=== PATIENT | female | born 1970 | race Caucasian/White ===

== ENCOUNTER → 2019-10-24 | Outpatient (CLI) | payer BC ==
--- NOTE | 2019-10-24 15:05 | CT ---
EXAMINATION TYPE: CT abdomen pelvis wo con DATE OF EXAM: 10/24/2019 COMPARISON: None HISTORY: Generalized abdominal pain, diarrhea CT DLP: 226.1 mGycm Automated exposure control for dose reduction was used. TECHNIQUE: Helical acquisition of images from the lung bases through the pelvis. FINDINGS: Lack of intravenous contrast could compromise sensitivity. LUNG BASES: No significant abnormality is appreciated. Small cystic focus possible small pneumatocele right posterior lung base measures 15 mm, smaller similar appearing lesion in the left lung base AORTA: No significant abnormality is appreciated. LIVER/GB: No significant abnormality is appreciated. PANCREAS: No significant abnormality is seen. SPLEEN: No significant abnormality is seen. ADRENALS: No significant abnormality is seen. KIDNEYS: No significant abnormality is seen. REPRODUCTIVE ORGANS: Uterus is absent. Ovaries are not seen.. URINARY BLADDER: No significant abnormality is seen. BOWEL: High dense material is present at the level of the cecum possibly due to prior appendectomy, correlate with appropriate history. Fluid-filled loops of small and large bowel noted. FREE AIR: No Free Air is visible. ASCITES: None visible. PELVIC ADENOPATHY: None visualized. RETROPERITONEAL ADENOPATHY: No Retroperitoneal Adenopathy visible. OSSEOUS STRUCTURES: Mild degenerative disc changes in the visualized spine.. IMPRESSION: NONCONTRAST EXAM. NO SIGNIFICANT ABNORMALITY TO ACCOUNT FOR PATIENT'S SYMPTOMS. Findings consistent w ith patient's history of diarrhea.
== END | disposition home or self-care (01) ==
LOC: RADCTMAIN 14:04
PROVIDERS: ATTEND Nurse Practitioner Adult Health
DX: R10.9 Unspecified abdominal pain (principal); R19.7 Diarrhea, unspecified
CPT/HCPCS: 74176

== ENCOUNTER 2019-10-26 14:24 | Inpatient (IN) | payer BC ==
--- NOTE | 2019-10-26 14:52 | ED ---
General Adult HPI - General Chief complaint: Recheck/Abnormal Lab/Rx Stated complaint: Abd pain Time Seen by Provider: 10/26/19 14:40 Source: patient, RN notes reviewed Mode of arrival: ambulatory Limitations: no limitations - History of Present Illness Initial comments: 49-year-old female with a past medical history of hysterectomy, appendectomy presents to the emergency department for a chief complaint of abnormal labs. Patient states that about 3-4 days ago she had some diarrhea and abdominal pain. States she went to her primary care doctor and had an elevated pancreas enzyme level of 400. States it was repeated again the next day and was 1000. Patient states that it was repeated again yesterday and was now at 3000. Patient states that she got a call from her doctor to come to the emergency department. Patient states that she is actually doing much better. She states she has hardly any pain but does admit to some minimal discomfort in the epigastric area. Denies any nausea vomiting diarrhea. States she has been drinking a clear liquid diet which was instructed by her doctor.Patient has no other complaints at this time including shortness of breath, chest pain, headache, or visual changes. - Related Data Home Medications Medication Instructions Recorded Confirmed Varenicline Tartrate [Chantix 0.5 mg PO DIRECTED 10/26/19 10/26/19 Starter Pack] Allergies Allergy/AdvReac Type Severity Reaction Status Date / Time No Known Allergies Allergy Verified 10/26/19 18:17 Review of Systems ROS Statement: Those systems with pertinent positive or pertinent negative responses have been documented in the HPI. ROS Other: All systems not noted in ROS Statement are negative. Past Medical History Past Medical History: No Reported History History of Any Multi-Drug Resistant Organisms: None Reported Past Surgical History: Appendectomy, Hysterectomy Past Psychological History: No Psychological Hx Reported Smoking Status: Current some day smoker Past Alcohol Use History: None Reported Past Drug Use History: None Reported General Exam Limitations: no limitations General appearance: alert, in no apparent distress Head exam: Present: atraumatic, normocephalic, normal inspection Eye exam: Present: normal appearance, PERRL, EOMI. Absent: scleral icterus, conjunctival injection, periorbital swelling ENT exam: Present: normal exam, mucous membranes moist Neck exam: Present: normal inspection, full ROM. Absent: tenderness, meni ngismus, lymphadenopathy Respiratory exam: Present: normal lung sounds bilaterally. Absent: respiratory distress, wheezes, rales, rhonchi, stridor Cardiovascular Exam: Present: regular rate, normal rhythm, normal heart sounds. Absent: systolic murmur, diastolic murmur, rubs, gallop, clicks GI/Abdominal exam: Present: soft, tenderness (Minimal epigastric tenderness. No right upper quadrant tenderness. Negative Wills sign. No lower abdominal tenderness.), normal bowel sounds. Absent: distended, guarding, rebound, rigid Neurological exam: Present: alert Course Vital Signs 10/26/19 10/26/19 10/26/19 14:32 15:41 15:50 Temperature 97.9 F 97.8 F Pulse Rate 101 H 80 Respiratory 18 20 Rate Blood Pressure 120/75 112/74 O2 Sat by Pulse 98 100 Oximetry 10/26/19 10/26/19 16:38 18:05 Temperature 97.8 F 97.7 F Pulse Rate 88 78 Respiratory 18 20 Rate Blood Pressure 117/63 109/69 O2 Sat by Pulse 100 100 Oximetry - Reevaluation(s) Reevaluation #1: 10/26/19 14:52 Patient had a noncontrast CT of the abdomen and pelvis 2 days ago on 10/24/2019 that showed no significant abnormality. This was reviewed. Medical Decision Making - Medical Decision Making Physical exam reveals mild epigastric tenderness. No right upper quadrant tenderness. CBC unremarkable. CMP unremarkable. Lipase elevated at 1787. I do not have any previous to compare to however patient reports that today was 3000. Abdominal ultrasound was obtained which shows mild diffuse dilation of the main pancreatic duct at 3.1 mm which could be chronic. Correlate with amylase and lipase level. 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 Consider MRI and MRCP. Given dilation of the pancreatic duct and elevated lipase patient will be admitted for further management. GI is consulted. - Lab Data Result diagrams: 10/26/19 14:59 10/26/19 14:59 Lab Results 10/26/19 10/26/19 10/26/19 Range/Units 14:59 14:59 14:59 WBC 7.1 (3.8-10.6) k/uL RBC 4.99 (3.80-5.40) m/uL Hgb 15.8 (11.4-16.0) gm/dL Hct 47.0 H (34.0-46.0) % MCV 94.2 (80.0-100.0) fL MCH 31.7 (25.0-35.0) pg MCHC 33.7 (31.0-37.0) g/dL RDW 12.0 (11.5-15.5) % Plt Count 272 (150-450) k/uL Neutrophils % (Manual) 63 % Lymphocytes % (Manual) 27 % Monocytes % (Manual) 6 % Eosinophils % (Manual) 4 % Neutrophils # (Manual) 4.47 (1.3-7.7) k/uL Lymphocytes # (Manual) 1.92 (1.0-4.8) k/uL Monocytes # (Manual) 0.43 (0-1.0) k/uL Eosinophils # (Manual) 0.28 (0-0.7) k/uL Nucleated RBCs 0 (0-0) /100 WBC Manual Slide Review Performed RBC Morphology Normal Sodium 138 (137-145) mmol/L Potassium 4.0 (3.5-5.1) mmol/L Chloride 109 H (98-107) mmol/L Carbon Dioxide 19 L (22-30) mmol/L Anion Gap 10 mmol/L BUN 11 (7-17) mg/dL Creatinine 0.64 (0.52-1.04) mg/dL Est GFR (CKD-EPI)AfAm >90 (>60 ml/min/1.73 sqM) Est GFR (CKD-EPI)NonAf >90 (>60 ml/min/1.73 sqM) Glucose 76 (74-99) mg/dL Calcium 9.9 (8.4-10.2) mg/dL Total Bilirubin 0.7 (0.2-1.3) mg/dL AST 27 (14-36) U/L ALT 15 (4-34) U/L Alkaline Phosphatase 100 (38-126) U/L Total Protein 7.7 (6.3-8.2) g/dL Albumin 4.7 (3.5-5.0) g/dL Amylase (30-110) U/L Lipase 1787 H (23-300) U/L Urine Color Colorless Urine Appearance Clear (Clear) Urine pH 5.5 (5.0-8.0) Ur Specific [place] 1.002 (1.001-1.035) Urine Protein Negative (Negative) Urine Glucose (UA) Negative (Negative) Urine Ketones Trace H (Negative) Urine Blood Negative (Negative) Urine Nitrite Negative (Negative) Urine Bilirubin Negative (Negative) Urine Urobilinogen <2.0 (<2.0) mg/dL Ur Leukocyte Esterase Small H (Negative) Urine RBC 1 (0-5) /hpf Urine WBC 3 (0-5) /hpf Ur Squamous Epith Cells <1 (0-4) /hpf Urine Bacteria Rare H (None) /hpf Urine Mucus Rare H (None) /hpf Disposition Clinical Impression: Elevated lipase, Pancreatic duct dilated Disposition: ADMITTED IP TO THIS HOSP Condition: Fair Is patient prescribed a controlled substance at d/c from ED?: No Referrals: Lanre Lo MD [Primary Care Provider] - 1-2 days Time of Disposition: 17:36
[2019-10-26] MEDS ORDERED: SODIUM CHLORIDE 0.9% 1,000 ML IV STA (14:59)
[2019-10-26 16:02] LABS: ALT 15 U/L (4-34); AST 27 U/L (14-36); African American GFR (CKD) >90 (>60 ml/min/1.73 sqM); Albumin 4.7 g/dL (3.5-5.0); Alkaline Phosphatase 100 U/L (38-126); Anion Gap 10 mmol/L; Blood Urea Nitrogen 11 mg/dL (7-17); Calcium 9.9 mg/dL (8.4-10.2); Carbon Dioxide 19 mmol/L (22-30); Chloride 109 mmol/L (98-107); Glucose 76 mg/dL (74-99); Non-African American GFR(CKD) >90 (>60 ml/min/1.73 sqM); Sodium 138 mmol/L (137-145); Total Bilirubin 0.7 mg/dL (0.2-1.3); Total Protein 7.7 g/dL (6.3-8.2)
[2019-10-26 16:10] LABS: Appearance,Urine Clear (Clear); Bacteria,Urine Rare /hpf; Bilirubin,Urine Negative (Negative); Blood,Urine Negative (Negative); Color,Urine Colorless; Glucose,Urine (UA) Negative (Negative); Ketones,Urine Trace (Negative); Leukocyte Esterase,Urine Small (Negative); Mucus,Urine Rare /hpf; Nitrite,Urine Negative (Negative); PH, Urine 5.5 (5.0-8.0); Protein,Urine Negative (Negative); RBC,Urine 1 /hpf (0-5); Specific Gravity,Urine 1.002 (1.001-1.035); Squamous Epithelial Cell,Urine <1 /hpf (0-4); Urobilinogen,Urine <2.0 mg/dL (<2.0); WBC,Urine 3 /hpf (0-5)
--- NOTE | 2019-10-26 16:14 | US ---
EXAMINATION TYPE: US abdomen limited DATE OF EXAM: 10/26/2019 COMPARISON: CT 10/24/2019 CLINICAL HISTORY: 49-year-old female RUQ/pancreas. Elevated enzymes per patient TECHNIQUE: Multiple sonographic images of the right upper quadrant are obtained. FINDINGS: EXAM MEASUREMENTS: Liver Length: 10.8 cm Gallbladder Wall: 0.2 cm CBD: 4.8 mm, within normal limits. Right Kidney: 10.5 x 4.5 x 4.5 cm Data Control Clerk notes: Lower pole of right kidney obscured by bowel gas. Pancreas: prominent duct at 3.1 mm. Liver: wnl Gallbladder: No stones seen Evidence for sonographic Wills's sign: No CBD: wnl Right Kidney: No hydronephrosis. IMPRESSION: 1. Mild diffuse dilatation of the main pancreatic duct at 3.1 mm maybe chronic in this patient from remote pancreatic disease. Correlate with amylase and lipase levels. 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 Consider follow-up pancreas MRI and MRCP. 2. No cholelithiasis or biliary ductal dilatation.
[2019-10-26 16:43] LABS: HGB 15.8 gm/dL (11.4-16.0); MCH 31.7 pg (25.0-35.0); MCHC 33.7 g/dL (31.0-37.0); MCV 94.2 fL (80.0-100.0); Mean Platelet Volume 8.1; Platelet Count 272 k/uL (150-450); RBC 4.99 m/uL (3.80-5.40); WBC 7.1 k/uL (3.8-10.6)
[2019-10-26 17:23] LABS: Eosinophils # (M) 0.28 k/uL (0-0.7); Lymphocytes # (M) 1.92 k/uL (1.0-4.8); Monocytes # (M) 0.43 k/uL (0-1.0); Neutrophils # (M) 4.47 k/uL (1.3-7.7); Neutrophils % (M) 63 %; Nucleated Red Blood Cells 0 /100 WBC (0-0); Total Cells Counted 100
[2019-10-26] MEDS ORDERED: ONDANSETRON 4 MG/2 ML VIAL IVP PRN (17:36)
[2019-10-26] MEDS ORDERED: HYDROmorphone 0.5 MG/0.5 ML SYRINGE IVP PRN (17:36)
[2019-10-26] MEDS ORDERED: KETOROLAC 30 MG/ML 1 ML VIAL IVP PRN (17:36)
[2019-10-26] MEDS ORDERED: NALOXONE 0.4 MG/ML 1 ML VIAL IV PRN (17:36)
[2019-10-26] MEDS: SODIUM CHLORIDE 0.9% 1,000 ML IV SCH (18:00)
[2019-10-27] MEDS: SODIUM CHLORIDE 0.9% 1,000 ML IV SCH ×3 (02:15→20:27)
[2019-10-27 09:50] LABS: HCT 38.8 % (34.0-46.0); MCHC 33.6 g/dL (31.0-37.0); MCV 95.3 fL (80.0-100.0); Mean Platelet Volume 9.1; Platelet Count 243 k/uL (150-450); RBC 4.07 m/uL (3.80-5.40); RDW 12.1 % (11.5-15.5); WBC 4.9 k/uL (3.8-10.6)
[2019-10-27 10:00] LABS: ALT 11 U/L (4-34); AST 21 U/L (14-36); African American GFR (CKD) >90 (>60 ml/min/1.73 sqM); Albumin 3.3 g/dL (3.5-5.0); Alkaline Phosphatase 65 U/L (38-126); Amylase 212 U/L (30-110); Anion Gap 4 mmol/L; Blood Urea Nitrogen 6 mg/dL (7-17); Calcium 8.4 mg/dL (8.4-10.2); Carbon Dioxide 20 mmol/L (22-30); Chloride 116 mmol/L (98-107); Glucose 83 mg/dL (74-99); Non-African American GFR(CKD) >90 (>60 ml/min/1.73 sqM); Potassium 4.1 mmol/L (3.5-5.1); Sodium 140 mmol/L (137-145); Total Bilirubin 0.5 mg/dL (0.2-1.3); Total Protein 5.7 g/dL (6.3-8.2)
--- NOTE | 2019-10-27 10:42 | CONS ---
CONSULTATION DATE OF SERVICE: October 27, 2019. REQUESTING PHYSICIAN: Dr. Lanre Lo. REASON FOR CONSULTATION: Elevated lipase and diarrhea. HISTORY OF PRESENT ILLNESS: The patient is a 49-year-old pleasant white female who has been having diarrhea for the last 2 weeks duration. She was having bowel movements anywhere from 5 to 7 a day which are loose to watery in consistency but no blood or mucus in the stool. The diarrhea continued to progressively get worse. She went to see Dr. Lo on an outpatient basis and had initially some stool studies done. According to the patient, she does not know the results. She did have routine labs on an outpatient basis and apparently was noted to have a lipase of 3000. She had a CT of the abdomen and pelvis done and was advised to go to the emergency room for possible acute pancreatitis. The patient in the meantime, denies any abdominal pain. Reports no nausea, vomiting. Never had these symptoms in the past. She came to the ER and had repeat labs done. Lipase was reported as 1746, serum transaminase within normal limits. This morning she still has no abdominal pain. She continues to have diarrhea with bowel movements though she had about 2 loose watery bowel movements this morning. No bleeding. No prior history of colonoscopy. No history of alcohol use. No fever, chills, night sweats. She denies any recent antibiotic use. No recent travel history. PAST MEDICAL HISTORY: Unremarkable. PAST SURGICAL HISTORY: Appendectomy, hysterectomy. MEDICATIONS: At home include Chantix. ALLERGIES: None. SOCIAL HISTORY: Chronic smoker. No alcohol use. FAMILY HISTORY: Unremarkable. REVIEW OF SYMPTOMS: Cardiopulmonary: No chest pain, shortness of breath. : No dysuria or hematuria. MUSCULOSKELETAL unremarkable. SKIN unremarkable. ENDOCRINE unremarkable. PSYCHIATRIC unremarkable. NEUROLOGY unremarkable. ENT/vision unremarkable. CONSTITUTIONAL: No recent weight loss. No fever, chills, night sweats. PHYSICAL EXAMINATION: She appears comfortable. No apparent distress. VITAL SIGNS: Stable. Blood pressure is 105/69, pulse 78, temperature 98.2. HEENT examination: Unremarkable. Conjunctivae pink. Sclerae anicteric. Oral cavity no lesions. NECK: No JVD or lymph node enlargement. CHEST: Clear to auscultation. HEART: Regular rate and rhythm. ABDOMEN: Soft. Bowel sounds are positive. No organomegaly. EXTREMITIES: No pedal edema. SKIN no rashes. NEUROLOGIC: Alert and oriented x3. No focal deficits. LABS: WBC 7.1, hemoglobin 15.8, platelets normal. Basic metabolic panel is within normal limits. ALT, AST, T-bilirubin and alkaline phosphatase are normal. Lipase is 1787. CT of the abdomen and pelvis done 2 days ago showed normal-appearing pancreas. IMPRESSION: 1. Elevated lipase at 3000 which is down to 1787 yesterday, but clinically patient does not have any evidence of abdominal pain, nausea, vomiting, possibly representing mild pancreatitis. Recent CT scan showed normal-appearing pancreas and normal-appearing gallbladder. Ultrasound of the gallbladder was done yesterday that showed no evidence of gallstones or acute cholecystitis. She never had pancreatitis in the past. 2. Diarrhea for 2 weeks duration, possibly infectious etiology. RECOMMENDATIONS: 1. Stool studies. 2. Start on full liquid diet and advance as tolerated. 3. Repeat labs today. 4. If her labs are improving, she can be discharged home today or tomorrow with outpatient followup and outpatient colonoscopy. The plan was discussed with the patient. She is agreeable to it. Thank you for this consultation. MMODL / IJN: [id number] /
[2019-10-27 11:32] LABS: Band Neutrophils % 1 %; Eosinophils # (M) 0.05 k/uL (0-0.7); Lymphocytes # (M) 0.93 k/uL (1.0-4.8); Monocytes # (M) 0.29 k/uL (0-1.0); Neutrophils % (M) 73 %; Nucleated Red Blood Cells 0 /100 WBC (0-0); Total Cells Counted 100
--- NOTE | 2019-10-27 22:05 | P.HPIM ---
History of Present Illness H&P Date: 10/27/19 Chief Complaint: diarrhea History of presenting complaint: This is a very pleasant [address] Lanre Lo. Rather unremarkable past medical history fairly good health. About 2 weeks ago patient started having diarrhea. About 6-7 times a day. No blood. Predominantly watery. About 5 days ago she turned up significant abdominal cramping. Does not nausea vomiting fever chills. She went on to see her family doctor and they did draw labs and patient's lipase came back at 463. The following day on Monday she went back in again lipase came back at 1000. Following day again she went in lipase had, up to 3000.. Patient had barely been eating and does drink some liquids. She was sent to the ER. No fever no chills. Patient does drink 2 glasses of wine at night. Earlier today, did tolerate some liquids. No abdominal pain. at the bedside. Review of systems: GEN.: Tired EYES: None HEENT: None NECK: None RESPIRATORY: None CARDIOVASCULAR: None GASTROINTESTINAL: As above GENITOURINARY: None MUSCULOSKELETAL: None LYMPHATICS: None HEMATOLOGICAL: None PSYCHIATRY: None NEUROLOGICAL: None. Past medical history: Unremarkable Social history: Smokes a pack a day over 3 days. 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 . Drinks about 2 glasses of wine a night. Sometimes more on the weekends Family history: Reviewed, noncontributory to presentation Physical examination: VITAL SIGNS: 97.9, 101, 18, 120/75, 98% on room air GENERAL: BMI 20, laying in bed slightly anxious. EYES: Pupils equal. Conjunctiva normal. HEENT: External appearance of nose and ears normal, oral cavity grossly normal. NECK: JVD not raised; masses not palpable. HEART: First and second heart sounds are normal; no edema. LUNGS: Respiratory rate normal; clear to auscultation. ABDOMEN: Soft, nontender, liver spleen not palpable, no masses palpable. PSYCH: Alert and oriented x3; mood and affect normal. NEUROLOGICAL: Cranial nerves grossly intact; no facial asymmetry, power and sensation grossly intact. LYMPHATICS: No lymph nodes palpable in the axilla and neck INVESTIGATIONS, reviewed in the clinical context: White count 7.1 hemoglobin 15.8 potassium 4 creatinine 0.64 Lipase 1787, repeat this morning 1303 amylase 212 Abdominal ultrasound-mild diffuse dilatation of the main pancreatic duct. Obstructive lesion could not be ruled out. No bile stones Assessment: -Acute pancreatitis. The patient been having diarrhea for close to 2 weeks. Did have abdominal pain about 5 days ago. Patient had been barely eating or drinking for last 4 days and her lipase Climbing up. Patient does drink about 2 glasses of wine a night. This may be significant for her. No gallstones reported. Viral etiology still possible. 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 Eaton was consulted. Patient is feeling better today did tolerate some liquids. Like the patient to be standing overnight, at least see how she tolerates solid food and if lipase get worse. Patient very keen and tearful to go home because her son with visiting from college. I did talk to her about the pros and cons of my plan. I would like to be careful. This was further discussed. We'll see how she does. Repeat labs in the morning. Past Medical History Past Medical History: No Reported History History of Any Multi-Drug Resistant Organisms: None Reported Past Surgical History: Appendectomy, Hysterectomy Past Anesthesia/Blood Transfusion Reactions: No Reported Reaction Past Psychological History: No Psychological Hx Reported Smoking Status: Current some day smoker Past Alcohol Use History: None Reported Past Drug Use History: None Reported Medications and Allergies Home Medications Medication Instructions Recorded Confirmed Type Varenicline Tartrate [Chantix 0.5 mg PO DIRECTED 10/26/19 10/26/19 History Starter Pack] Allergies Allergy/AdvReac Type Severity Reaction Status Date / Time No Known Allergies Allergy Verified 10/26/19 18:17 Physical Exam Vitals: Vital Signs Temp Pulse Pulse Resp BP BP Pulse Ox 10/27/19 07:50 98.2 F 78 18 105/69 98 10/27/19 01:56 97.9 F 81 16 102/66 97 10/26/19 23:29 88 18 10/26/19 18:36 98.0 F 80 18 119/80 98 10/26/19 18:05 97.7 F 78 20 109/69 100 10/26/19 16:38 97.8 F 88 18 117/63 100 10/26/19 15:50 112/74 10/26/19 15:41 97.8 F 80 20 100 10/26/19 14:32 97.9 F 101 H 18 120/75 98 Intake and Output 02/01/20 02/02/20 02/02/20 22:59 06:59 14:59 Intake Total 1180 840 100 Balance 1180 840 100 Intake: Intake, IV Titration 460 840 Amount Sodium Chloride 0.9% 1, 460 840 000 ml @ 120 mls/hr IV . Q8H20M [facility] Rx#:[id number] Oral 720 100 Other: Voiding Method Toilet Toilet # Voids 2 2 Weight 51.256 kg Results CBC & Chem 7: 10/27/19 09:40 10/27/19 09:40 Labs: Abnormal Lab Results - Last 24 Hours (Table) 10/26/19 10/26/19 10/26/19 Range/Units 14:59 14:59 14:59 Hct 47.0 H (34.0-46.0) % Lymphocytes # (Manual) (1.0-4.8) k/uL Chloride 109 H (98-107) mmol/L Carbon Dioxide 19 L (22-30) mmol/L BUN (7-17) mg/dL Creatinine (0.52-1.04) mg/dL Total Protein (6.3-8.2) g/dL Albumin (3.5-5.0) g/dL Amylase (30-110) U/L Lipase 1787 H (23-300) U/L Urine Ketones Trace H (Negative) Ur Leukocyte Esterase Small H (Negative) Urine Bacteria Rare H (None) /hpf Urine Mucus Rare H (None) /hpf 10/27/19 10/27/19 Range/Units 09:40 09:40 Hct (34.0-46.0) % Lymphocytes # (Manual) 0.93 L (1.0-4.8) k/uL Chloride 116 H (98-107) mmol/L Carbon Dioxide 20 L (22-30) mmol/L BUN 6 L (7-17) mg/dL Creatinine 0.51 L (0.52-1.04) mg/dL Total Protein 5.7 L (6.3-8.2) g/dL Albumin 3.3 L (3.5-5.0) g/dL Amylase 212 H (30-110) U/L Lipase 1303 H (23-300) U/L Urine Ketones (Negative) Ur Leukocyte Esterase (Negative) Urine Bacteria (None) /hpf Urine Mucus (None) /hpf Thrombosis Risk Factor Assmnt - Choose All That Apply Each Factor Represents 1 point: Age 41-60 years Other Risk Factors: No Other congenital or acquired thrombophilia - If yes, enter type in comment: No Thrombosis Risk Factor Assessment Total Risk Factor Score: 1 Thrombosis Risk Factor Assessment Level: Low Risk
[2019-10-27] MEDS ORDERED: LACTATED RINGERS 1,000 ML IV SCH (22:15)
[2019-10-27] MEDS: SODIUM BICARBONATE TAB 650 MG TAB PO SCH (23:21)
[2019-10-27] MEDS: ENOXAPARIN 40 MG/0.4 ML SYRINGE SQ SCH (23:26)
[2019-10-28 07:55] VITALS: BP 119/75; PULSE 80; RESP 18; TEMP 98.1
[2019-10-28] MEDS: ENOXAPARIN 40 MG/0.4 ML SYRINGE SQ SCH (08:36)
[2019-10-28] MEDS: SODIUM BICARBONATE TAB 650 MG TAB PO SCH (08:39)
[2019-10-28 09:35] LABS: Amylase 134 U/L (30-110); GGT 17 U/L (12-43)
--- NOTE | 2019-10-28 15:15 | CONS ---
CONSULTATION DATE OF SERVICE: 10/28/2019 Patient is a 49-year-old pleasant white female admitted to the hospital with elevated lipase and that was noted on outpatient basis. She was also having diarrhea for the last 2 weeks duration. Since being in the hospital, her diarrhea has significantly improved. Stool studies for C difficile toxin, GI antigen and ova parasites have been negative. The patient is feeling much better today. Lipase is down to 1000. She is on a low-fiber, low-fat diet, tolerating well. She denies any abdominal pain. No nausea, vomiting. PHYSICAL EXAMINATION: Blood pressure 119/75, pulse rate 80, temperature 98. HEENT: Examination unremarkable, conjunctivae are pink. Sclerae nonicteric. Oral cavity no lesions. NECK: No JVD or lymph node enlargement. CHEST: Clear to auscultation. HEART: Regular rate and rhythm. ABDOMEN: Soft, bowel sounds are positive. No organomegaly. EXTREMITIES: No pedal edema. SKIN: No rashes. NEUROLOGIC: Alert and oriented x3. No focal deficits. LABS: WBC 4.9, hemoglobin 13, platelets normal, basic metabolic panel is within normal limits. Lipase is 1098. C difficile toxin is negative. GI antigen negative. Stool occult blood negative. IMPRESSION: 1. Acute diarrhea for the last 2 weeks duration with negative stool studies so far. Diarrhea has significantly improved since being in the hospital. 2. Asymptomatic elevation of lipase, possibly mild acute pancreatitis or possibly elevated because of the acute diarrhea. In any event, CT of the abdomen and pelvis done on outpatient basis was unremarkable with normal-appearing pancreas. The patient is clinically asymptomatic. RECOMMENDATIONS: 1. Advance to low-fat diet. 2. Since the diarrhea has improved, no further studies recommended. 3. I did suggest outpatient colonoscopy in 2-3 weeks. 4. She can be discharged home with outpatient followup in a week. Thank you for this consultation. MMODL / IJN: [id number] /
--- NOTE | 2019-10-28 21:51 | P.DS ---
Providers Date of admission: 10/26/19 18:23 Expected date of discharge: 10/28/19 Attending physician: Tae Collins Consults: 10/26/19 17:36 Consult Physician Routine Consulting Provider: Alondra Ann Consult Reason/Comments: dilated pancreatic duct, elevated lipase Do you want consulting provider notified?: Yes [facility]: Chief Complaint: diarrhea History of presenting complaint: This is a very pleasant [address] Lanre Lo. Rather unremarkable past medical history fairly good health. About 2 weeks ago patient started having diarrhea. About 6-7 times a day. No blood. Predominantly watery. About 5 days ago she turned up significant abdominal cramping. Does not nausea vomiting fever chills. She went on to see her family doctor and they did draw labs and patient's lipase came back at 463. The following day on Monday she went back in again lipase came back at 1000. Following day again she went in lipase had, up to 3000.. Patient had barely been eating and does drink some liquids. She was sent to the ER. No fever no chills. Patient does drink 2 glasses of wine at night. Earlier today, did tolerate some liquids. No abdominal pain. at the bedside. Today-the much better. Tolerated diet overnight. No abdominal pain no nausea vomiting. Labs were reviewed with the patient and . Diet and other details were discussed at length question answered. She will follow up with Dr. Eaton in the office. Okayed by Dr. Eaton to be discharged. Discussion and discharge planning more than 35 minutes Consultation: Dr. Paris Ann from GI Physical examination: VITAL SIGNS: 98.1-80-89-119/75-97% on room air GENERAL: BMI 20, sitting up, comfortable EYES: Pupils equal. Conjunctiva normal. HEENT: External appearance of nose and ears normal, oral cavity grossly normal. NECK: JVD not raised; masses not palpable. HEART: First and second heart sounds are normal; no edema. LUNGS: Respiratory rate normal; clear to auscultation. ABDOMEN: Soft, nontender, liver spleen not palpable, no masses palpable. PSYCH: Alert and oriented x3; mood and affect normal. INVESTIGATIONS, reviewed in the clinical context: Amylase 134, lipase 1098 Previous testing White count 7.1 hemoglobin 15.8 potassium 4 creatinine 0.64 Lipase 1787, repeat this morning 1303 amylase 212 Abdominal ultrasound-mild diffuse dilatation of the main pancreatic duct. Obstructive lesion could not be ruled out. No bile stones Assessment: -Acute pancreatitis. The patient been having diarrhea for close to 2 weeks. Did have abdominal pain about 5 days ago. Patient had been barely eating or drinking for last 4 days and her lipase Climbing up. Patient does drink about 2 glasses of wine a night. This may be significant for her. No gallstones reported. Viral etiology still possible. -Metabolic acidosis from diarrhea -Hypoalbuminemia-is acute phase reactant Disposition: Home Patient Condition at Discharge: Fair Plan - Discharge Summary Discharge Rx Participant: No New Discharge Prescriptions: Continue Varenicline Tartrate [Chantix Starter Pack] 0.5 mg PO DIRECTED Discharge Medication List Varenicline Tartrate [Chantix Starter Pack] 0.5 mg PO DIRECTED 10/26/19 [History] Follow up Appointment(s)/Referral(s): Amira Yin PAC [REFERRING] - 11/19/19 9:30 am Lanre Lo MD [Primary Care Provider] - 10/31/19 10:45 am Patient Instructions/Handouts: Low Fat Diet (DC) Activity/Diet/Wound Care/Special Instructions: Low-fat diet
== END 2019-10-28 13:35 | disposition home or self-care (01) | DRG 439 ==
LOC: EC 14:24 → 4SSUR 18:23
PROVIDERS: ADMIT Hospitalist; ATTEND Hospitalist
DX: K85.90 Acute pancreatitis without necrosis or infection, unspecified (principal); E87.2 Acidosis; F17.210 Nicotine dependence, cigarettes, uncomplicated; E88.09 Other disorders of plasma-protein metabolism, not elsewhere classified; R19.7 Diarrhea, unspecified; Z90.710 Acquired absence of both cervix and uterus; Z90.49 Acquired absence of other specified parts of digestive tract
CPT/HCPCS: 36415; 74176; 76705; 80053; 81001; 82150; 82272; 82977; 83690; 83993; 85025; 87045; 87046; 87324; 87329; 96360; 99285

== ENCOUNTER → 2019-11-22 | Outpatient (CLI) | payer BC ==
--- NOTE | 2019-11-22 12:47 | MR ---
EXAMINATION TYPE: MR MRCP DATE OF EXAM: 11/22/2019 COMPARISON: CT dated 10/24/2019 and the abdomen and limited ultrasound dating 10/26/2019. HISTORY: Pancreatic duct abnormality TECHNIQUE: Multiplanar, multisequence images of the abdomen were performed using [id number] imaging without intravenous contrast per the MRCP protocol. FINDINGS: The common bile duct measures 4.7 mm, within normal limits. The common hepatic duct measures 4.4 mm, also within normal limits. No intrahepatic biliary ductal dilatation. Cystic duct is visualized and u nremarkable. The main pancreatic duct near the common bile duct at the pancreatic head measures 2.5 c m, within normal limits. The main pancreatic duct at the pancreatic body measures 2.4 mm, also within normal limits. The main pancreatic duct towards the pancreatic tail measures 1.5 mm, normal. The liver is elongated extending into the left upper quadrant. There is mild signal dropout of the he patic parenchyma and out of phase imaging compatible with mild degree hepatic steatosis. No intrahepa tic biliary ductal dilatation. The adrenal glands are slightly thickened bilaterally suggesting adren al gland hyperplasia. The pancreatic parenchyma is homogeneous in signal. Gallbladder demonstrates mi nimal biliary sludge. The spleen is nonenlarged measuring 10.0 cm in craniocaudal dimension. The sign al of the kidneys are symmetric and unremarkable. No dilated large or small bowel is seen. Greater th an 1 cm short axis lymph nodes seen in the abdomen. IMPRESSION: 1. The prominent size of the main pancreatic duct on ultrasound appears artifactual or related to obl iquity as the pancreatic duct throughout is within normal limits of size. No side branch dilation is seen. 2. Small amount of biliary sludge within the gallbladder. 3. Mild degree hepatic steatosis. 4. Findings suggesting adrenal gland hyperplasia bilaterally.
== END | disposition home or self-care (01) ==
LOC: RADMRIMAIN 10:40
PROVIDERS: ATTEND Internal Medicine Gastroenterology
DX: K76.0 Fatty (change of) liver, not elsewhere classified (principal); K82.8 Other specified diseases of gallbladder; Q45.3 Other congenital malformations of pancreas and pancreatic duct
CPT/HCPCS: 74181

== ENCOUNTER → 2022-12-05 | Outpatient (CLI) | payer BC ==
--- NOTE | 2022-12-07 09:07 | MM ---
Reason for Exam: Screening (asymptomatic). Last mammogram was performed 7 year(s) and 5 month(s) ago. Patient History: Menarche at age 16. First Full-Term at age 22. Left ovary removed at age 41. Right ovary removed at age 41. Hysterectomy at age 41. Postmenopausal. Maternal aunt had breast cancer under age 50. Risk Values: Marni 5 year model risk: 0.9%. NCI Lifetime model risk: 7.0%. Prior Study Comparison: 12/30/2013 Bilateral Screening Mammogram, [facility]. 06/26/2015 Bilateral Screening Mammogram, [facility]. Tissue Density: There are scattered fibroglandular densities. Analyzed By CAD. Overall Assessment: Incomplete: need additional imaging evaluation, BI-RAD 0 Management: Special View Mammogram of the left breast. Electronically signed and approved by: Jigar Escamilla M.D.
== END | disposition home or self-care (01) ==
LOC: RADMAMWWP 10:52
PROVIDERS: ATTEND Family Medicine
DX: Z12.31 Encounter for screening mammogram for malignant neoplasm of breast (principal); Z78.0 Asymptomatic menopausal state; Z80.3 Family history of malignant neoplasm of breast
CPT/HCPCS: 77067

== ENCOUNTER → 2022-12-08 | Outpatient (CLI) | payer BC ==
--- NOTE | 2022-12-08 14:06 | MM ---
Reason for Exam: Additional evaluation requested from prior study. Last screening mammogram was performed less than 1 month ago. Patient History: Menarche at age 16. First Full-Term at age 22. Left ovary removed at age 41. Right ovary removed at age 41. Hysterectomy at age 41. Postmenopausal. Maternal aunt had breast cancer under age 50. Risk Values: Marni 5 year model risk: 0.9%. NCI Lifetime model risk: 7.0%. Prior Study Comparison: 12/30/2013 Bilateral Screening Mammogram, [facility]. 06/26/2015 Bilateral Screening Mammogram, [facility]. 12/05/2022 Bilateral MG screening mammo w CAD, [facility]. Tissue Density: Left: There are scattered fibroglandular densities. Findings: Analyzed By CAD. There is oval 7 mm obscured mass in the central middle depth approximately 6 to 7 cm distance from nipple on additional views acquired. Overall Assessment: Incomplete: need additional imaging evaluation, BI-RAD 0 Management: Diagnostic Breast Ultrasound of the left breast. Targeted ultrasound left breast. Electronically signed and approved by: Jigar Escamilla M.D.
--- NOTE | 2022-12-08 14:59 | USB ---
Patient History: Menarche at age 16. First Full-Term at age 22. Left ovary removed at age 41. Right ovary removed at age 41. Hysterectomy at age 41. Postmenopausal. Maternal aunt had breast cancer under age 50. Risk Values: Marni 5 year model risk: 0.9%. NCI Lifetime model risk: 7.0%. Technique: Method: Targeted. Prior Study Comparison: 12/30/2013 Bilateral Screening Mammogram, [facility]. 06/26/2015 Bilateral Screening Mammogram, [facility]. 12/05/2022 Bilateral MG screening mammo w CAD, [facility]. Findings: The lower inner quadrant of the left breast, the axilla of the left breast and the retroareolar of the left breast were scanned. Left breast lower inner quadrant including the retroareolar region and nipple where scanned with grayscale and color Doppler imaging. At 7:00 5 cm from nipple is a hypoechoic mass measuring 8 x 11 x 5 mm. This corresponds with mammographic imaging same day. No additional suspicious masses. No enlarged suspicious lymph nodes. Overall Assessment: Suspicious, BI-RAD 4 Management: Ultrasound Core Biopsy of the left breast. A clinical breast exam by your physician is recommended on an annual basis and results should be correlated with mammographic findings. This exam should not preclude additional follow-up of suspicious palpable abnormalities. Results were given to the patient verbally at the time of exam. Electronically signed and approved by: Jesus Cedeno DO
== END | disposition home or self-care (01) ==
LOC: RADMAMWWP 13:29
PROVIDERS: ATTEND Family Medicine
DX: R92.8 Other abnormal and inconclusive findings on diagnostic imaging of breast (principal); Z78.0 Asymptomatic menopausal state; Z80.3 Family history of malignant neoplasm of breast
CPT/HCPCS: 77061; 77065

== ENCOUNTER → 2022-12-15 | Day surgery (SDC) | payer BC ==
--- NOTE | 2022-12-15 16:47 | USB ---
Risk Values: Amrni 5 year model risk: 0.9%. NCI Lifetime model risk: 7.0%. Findings: Targeted ultrasound exam left breast, 7:00 position, 5 cm from the nipple was unable to identify the intended biopsy target. Additional periareolar scanning was performed. The lesion may have represented a cyst that has involuted now. Six-month follow-up mammogram recommended to reassess. Findings and impression were discussed with the patient. Management: Diagnostic Mammogram of the left breast in 6 months. Electronically signed and approved by: Osmin Fuentes M.D. Radiologist
== END ==
LOC: RADUSWWP 12:35
PROVIDERS: ATTEND Family Medicine
DX: R92.8 Other abnormal and inconclusive findings on diagnostic imaging of breast (principal); Z53.9 Procedure and treatment not carried out, unspecified reason

== ENCOUNTER 2023-09-26 09:15 | Emergency (ER) | payer BC ==
[2023-09-26 09:27] VITALS: TEMP 98
[2023-09-26] MEDS ORDERED: NITROGLYCERIN SL TABS 0.4 MG TAB SUBLINGUAL STA ×2 (09:49→10:35)
--- NOTE | 2023-09-26 09:55 | ED ---
Chest Pain HPI - General Chief Complaint: Chest Pain Stated Complaint: Chest Pain Time Seen by Provider: 09/26/23 09:35 Source: patient, RN notes reviewed Mode of arrival: ambulatory Limitations: no limitations - History of Present Illness Initial Comments: This is a 53-year-old female who presents to the emergency department for chest pain. Symptoms started last night. States that this is centralized. She is not quite sure how to characterize it, and states that it may be a sharp or pressure sensation. States that the sensation becomes more prominent when she tries to take a deep breath, but is still present at rest. Denies any radiation of pain into the back or arm. She does not have any associated shortness of breath, abdominal pain, nausea, or vomiting. Denies any personal cardiac disease or family history for premature CAD. She is a smoker but denies any medical problems. MD Complaint: chest pain - Related Data Previous Rx's Medication Instructions Recorded Ibuprofen [Motrin] 800 mg PO Q8H PRN #30 tab 09/26/23 methocarbamoL [Robaxin-750] 1,500 mg PO TID PRN #30 tab 09/26/23 Allergies Allergy/AdvReac Type Severity Reaction Status Date / Time No Known Allergies Allergy Verified 09/26/23 13:14 Review of Systems ROS Statement: Those systems with pertinent positive or pertinent negative responses have been documented in the HPI. ROS Other: All systems not noted in ROS Statement are negative. Past Medical History Past Medical History: No Reported History History of Any Multi-Drug Resistant Organisms: None Reported Past Surgical History: Appendectomy, Hysterectomy Past Anesthesia/Blood Transfusion Reactions: No Reported Reaction Past Psychological History: No Psychological Hx Reported Smoking Status: Current every day smoker Past Alcohol Use History: Occasional Past Drug Use History: None Reported General Exam Limitations: no limitations General appearance: alert, in no apparent distress Head exam: Present: atraumatic, normocephalic, normal inspection Respiratory exam: Present: normal lung sounds bilaterally, chest wall tenderness. Absent: respiratory distress, wheezes, rales, rhonchi, stridor Cardiovascular Exam: Present: regular rate, normal rhythm, normal heart sounds. Absent: systolic murmur, diastolic murmur, rubs, gallop, clicks GI/Abdominal exam: Present: soft, normal bowel sounds. Absent: distended, tenderness, guarding, rebound, rigid Neurological exam: Present: alert, oriented X3, CN II-XII intact Psychiatric exam: Present: normal affect, normal mood Skin exam: Present: warm, dry, intact, normal color. Absent: rash Course Vital Signs 09/26/23 09/26/23 09/26/23 09:24 09:45 10:27 Temperature 98 F Pulse Rate 102 H 104 H 86 Respiratory 18 20 20 Rate Blood Pressure 158/90 149/84 140/86 O2 Sat by Pulse 98 98 98 Oximetry 09/26/23 09/26/23 09/26/23 11:00 11:47 14:00 Temperature Pulse Rate 92 104 H 81 Respiratory 16 16 16 Rate Blood Pressure 120/80 119/74 119/68 O2 Sat by Pulse 98 98 97 Oximetry Chest Pain MDM - MDM This is a 53-year-old female who presents to the emergency department for chest pain. Was pt. sent in by a medical professional or institution? @ -No Did you speak to anyone other than the patient for history? @ -No Did you review nursing and triage notes? @ -Yes, and I agree, it is accurate with regards to the patient's symptoms. Were old charts reviewed? @ -No Differential Diagnosis? @ -Differential Chest Pain: Stable Angina, Unstable Angina, STEMI, NSTEMI Aortic Dissection, Pneumothorax, Musculoskeletal, Esophageal Spasm GERD, Cholecystitis, Pancreatitis, Zoster, this is not meant to be an all-inclusive list. EKG interpreted by me (3pts min.)? @ -EKG interpreted by me demonstrating the following: Sinus rhythm. Ventri cular rate 94 beats per minute, [place] interval 160 ms, QRS duration 90 ms, QTC 391 ms. X-rays interpreted by me (1pt min.)? @ -Chest x-ray obtained, my interpretation identifies no localized consolidations or infiltrates. CT interpreted by me (1pt min.)? @ -Not obtained U/S interpreted by me (1pt. min.)? @ -Not obtained What testing was considered but not performed? (CT, X-rays, U/S, labs)? Why? @ -None What meds were considered but not given? Why? @ -None Did you discuss the management of the patient with other professionals? @ -No Did you reconcile home meds? @ -No Was smoking cessation discussed for >3mins.? @ -I discussed smoking cessation for greater than 3 minutes. The risk of smoking were discussed with the patient including but not limited to risks of cancer, stroke, coronary artery disease and COPD. Also discussed with patient were multiple methods of quitting smoking. Lastly we discussed the financial cost of smoking. Was critical care preformed (if so, how long)? @ -No Were there social determinants of health that impacted care today? How? (Homelessness, low income, unemployed, alcoholism, drug addiction, transportation, low edu. Level, literacy, decrease access to med. care, alf, rehab)? @ -No Was there de-escalation of care discussed even if they declined? (Discuss DNR or withdrawal of care, Hospice)? @ -No What co-morbidities impacted this encounter? (DM, HTN, Smoking, COPD, CAD, Cancer, CVA, Hep., AIDS, mental health diagnosis, sleep apnea, morbid obesity)? @ -Smoking Was patient admitted / discharged? @ -Discharged. Lab work obtained and found to be unremarkable, including a negative troponin and negative d-dimer. Covid, influenza, and RSV testing were negative. Chest x-ray reveals no acute process. She was given 2 rounds of nitroglycerin with no relief in symptoms. She was then given Toradol and Norflex, which she felt was more beneficial. Her pain was worse with inhalation and reproducible with palpation. Heart score is 3 based on symptoms, age, and smoking history. I did recommend admission for cardiac evaluation and ACS rule out, however the patient declined, saying that she felt better and wanted to go home. She was given very strict return parameters. Rx for ibuprofen and Robaxin provided with dosing instructions reviewed. Also advised close follow- up with her primary care provider. Undiagnosed new problem with uncertain prognosis? @ -None Drug Therapy requiring intensive monitoring for toxicity (Heparin, Nitro, Insulin, Cardizem)? @ -None Were any procedures done? @ -None Diagnosis/symptom? @ -Chest pain Acute, or Chronic, or Acute on Chronic? @ -Acute Uncomplicated (without systemic symptoms) or Complicated (systemic symptoms)? @ -Uncomplicated Side effects of treatment? @ -None Exacerbation, Progression, or Severe Exacerbation] @ -Not applicable Poses a threat to life or bodily function? @ -This will depend on the cause of the chest pain. Return precautions reviewed in depth, the patient is instructed to return to the emergency department with any new, worsening, or concerning symptoms. Patient verbalized understanding. This case was discussed in detail with the attending ED physician, Dr. Elliott. Presentation, findings, and treatment plan discussed in detail as well. Disposition Clinical Impression: Nicotine dependence, Chest pain Disposition: HOME SELF-CARE Instructions (If sedation given, give patient instructions): Chest Pain (ED) Additional Instructions: Return to the emergency department with any new, worsening, or concerning symptoms. Alternate with Ibuprofen and Tylenol as needed for pain relief. You can take the Robaxin as 1-2 tablets up to 3-4x daily as needed. Be aware that this may make you drowsy. Follow up with your primary care provider in 1-2 days. Prescriptions: Ibuprofen [Motrin] 800 mg PO Q8H PRN #30 tab PRN Reason: Pain methocarbamoL [Robaxin-750] 1,500 mg PO TID PRN #30 tab PRN Reason: Pain Is patient prescribed a controlled substance at d/c from ED?: No Referrals: Lanre Lo MD [Primary Care Provider] - 1-2 days
--- NOTE | 2023-09-26 10:09 | XR ---
EXAMINATION TYPE: XR chest 2V DATE OF EXAM: 09/26/2023 COMPARISON: None INDICATION: Chest pain TECHNIQUE: Frontal and lateral views of the chest are obtained. FINDINGS: The heart size is normal. The pulmonary vasculature is normal. The lungs are clear. IMPRESSION: 1. No acute pulmonary process.
[2023-09-26 10:10] LABS: INR 0.9 (<1.2); Partial Thromboplastin Time 24.7 sec (22.0-30.0); Prothrombin Time 10.3 sec (10.0-12.5)
[2023-09-26 10:27] LABS: ALT 17 U/L (4-34); AST 28 U/L (14-36); African American GFR (CKD) >90 (>60 ml/min/1.73 sqM); Albumin 4.3 g/dL (3.5-5.0); Alkaline Phosphatase 148 U/L (38-126); Anion Gap 11 mmol/L; Blood Urea Nitrogen 10 mg/dL (7-17); Calcium 9.8 mg/dL (8.4-10.2); Carbon Dioxide 26 mmol/L (22-30); Chloride 102 mmol/L (98-107); Glucose 110 mg/dL (74-99); Magnesium 1.7 mg/dL (1.6-2.3); Non-African American GFR(CKD) >90 (>60 ml/min/1.73 sqM); Potassium 4.7 mmol/L (3.5-5.1); Sodium 139 mmol/L (137-145); Total Bilirubin 0.4 mg/dL (0.2-1.3); Total Protein 7.3 g/dL (6.3-8.2)
[2023-09-26] MEDS ORDERED: ORPHENADRINE 30 MG/ML 2 ML VIAL IVP STA (10:35)
[2023-09-26] MEDS ORDERED: KETOROLAC 15 MG/ML 1 ML VIAL IVP STA ×2 (10:35→12:24)
[2023-09-26 10:42] LABS: HCT 49.7 % (34.0-46.0); HGB 16.4 gm/dL (11.4-16.0); MCHC 33.1 g/dL (31.0-37.0); MCV 96.8 fL (80.0-100.0); Mean Platelet Volume 8.8; Platelet Count 298 k/uL (150-450); RBC 5.13 m/uL (3.80-5.40); RDW 12.7 % (11.5-15.5); WBC 11.6 k/uL (3.8-10.6)
[2023-09-26 11:24] VITALS: RESP 16
[2023-09-26 11:48] LABS: Lymphocytes # (M) 1.04 k/uL (1.0-4.8); Monocytes # (M) 0.81 k/uL (0-1.0); Neutrophils # (M) 9.74 k/uL (1.3-7.7); Neutrophils % (M) 84 %; Nucleated Red Blood Cells 0 /100 WBC (0-0); Total Cells Counted 100
[2023-09-26] MEDS ORDERED: SODIUM CHLORIDE 0.9% 1,000 ML IV STA (12:24)
[2023-09-26] MEDS ORDERED: LIDOCAINE 4% PATCH TOPICAL ONE (12:28)
[2023-09-26] MEDS: MORPHINE SULFATE 4 MG/ML SYRINGE IVP STA ×2 (12:50→12:58)
[2023-09-26] MEDS ORDERED: traMADol 50 MG STARTER PACK 3 TAB BTL PO STA (13:45)
[2023-09-26 14:24] VITALS: BP 119/68; PULSE 81
== END 2023-09-26 14:02 | disposition home or self-care (01) ==
LOC: EC 09:15
DX: R07.9 Chest pain, unspecified (principal); F17.210 Nicotine dependence, cigarettes, uncomplicated
CPT/HCPCS: 36415; 93005; 85379; 80053; 83735; 84484; 85025; 85610; 85730; 87636; 71046; 99406; 99285; 96374; 96375; 96376; 96361; J2360; J1885

== ENCOUNTER → 2023-12-05 | Outpatient (CLI) | payer BC ==
--- NOTE | 2023-12-05 13:12 | CA ---
Stress Echo Report Yary Urias Age: 53 Gender: F : 1970 Exam Date: 12/05/2023 10:17 Exam Location: [place] [facility] Ht (in): 62 Wt (lb): 115 Ordering Physician: Cm Maxwell MD Referring Physician: Cecilia Mao PAC Travel Director: KAT KERR Technologist Procedure CPT: Indication: R07.89 chest pain ICD-9 Codes: Rhythm: Patient History: CHEST PAIN Cardiac Medications: Medications in past 24 hours: Contrast: Stress Results Protocol: Ayo Total dose(mL): Exercise Duration (min:sec): 6:[address] Depression (mm): Angina Score: Ventura Score: METS: 7.1 Resting HR: 89 Resting BP: 136 / 68 Peak HR: 160 Peak BP: 177 / 87 Max Predicted HR: 166 96 % Max Predicted HR Target HR: 141 Double Product: 24314 Stress Summary: BP Response: Reason for Termination: MAX EXERTION/TARGET HR Cardiac Symptoms: NO SYMPTOMS ECG Analysis Resting ECG: Stress ECG: Arrhythmia: Echo Analysis Resting Echo: Peak Echo Analysis: MEASUREMENTS (Male/Female) Normal Values CONCLUSIONS Excellent exercise tolerance Normal electrocardiogram and echocardiogram in response to exercise Dr. Jose Alfredo Laird MD (Electronically Signed) Final Date: 05 December 2023 13:11
== END | disposition home or self-care (01) ==
LOC: RADNMMAIN 09:33
PROVIDERS: ATTEND Family Medicine
DX: R07.89 Other chest pain (principal)
CPT/HCPCS: 93351